=== PATIENT | male | born 1980 | race Caucasian/White ===

== ENCOUNTER 2018-07-24 14:00 | Inpatient (IN) | payer BC ==
[2018-07-24 14:25] VITALS: BMI 25.0
--- NOTE | 2018-07-24 14:33 | HP ---
CIWA Score Nausea/Vomitin Muscle Tremors: 4-Moderate,w/Arms Extend Anxiety: 4-Mod. Anxious/Guarded Agitation: 1-Slight > Activity Paroxysmal Sweats: 1-Minimal Palms Moist Orientation: 0-Oriented Tacttile Disturbances: 2-Mild Itch/Numbness/Burn Auditory Disturbances: 2-Mild Harshness/Frighten Visual Disturbances: 1-Very Mild Sensitivity Headache: 2-Mild CIWA-Ar Total Score: 19 - Admission Criteria [facility] Guidelines: Admission for Medically Managed Detox: Requires at least one of the followin. CIWA greater than 12 2. Seizures within the past 24 hours 3. Delirium tremens within the past 24 hours 4. Hallucinations within the past 24 hours 5. Acute intervention needed for co occurring medical disorder 6. Acute intervention needed for co occurring psychiatric disorder 7. Severe withdrawal that cannot be handled at a lower level of care (continued vomiting, continued diarrhea, abnormal vital signs) requiring intravenous medication and/or fluids 8. Patient presents the following: CIWA greater than 12 Admission Criteria Met: Admission criteria met Admission ROS S - HPI Chief Complaint: I need help, I can't stop, I'm in trouble Allergies/Adverse Reactions: Allergies Allergy/AdvReac Type Severity Reaction Status Date / Time No Known Allergies Allergy Verified 07/24/18 14:27 History of Present Illness: 38 yo gentleman here for detox from alcohol - accompanied by his father. Patient gives long history of alcohol use, escalated recently - per his father, he was in [facility] ED last night and given librium (patient has no memory of this) to help the shakes. He has not had a seizure but has had black outs. Never came in for detox but has been to ED multiple times. Denies psychiatric history. Urine tox + cocaine but he states this is occasional use only. He is feeling sick, very tremulous, sweaty, anxious. Exam Limitations: No Limitations - Ebola screening Have you traveled outside of the country in the last 21 days: No (N) Have you had contact with anyone from an Ebola affected area: No Have you been sick,other than usual withdrawal symptoms: No Do you have a fever: No - Review of Systems Constitutional: Loss of Appetite, Malaise, Night Sweats, Changes in sleep, Weakness EENT: reports: No Symptoms Reported Respiratory: reports: No Symptoms reported Cardiac: reports: No Symptoms Reported GI: reports: Poor Fluid Intake, Indigestion, Abdominal cramping : reports: Frequency Musculoskeletal: reports: No Symptoms Reported Integumentary: reports: Dryness Neuro: reports: Headache, Tremors Endocrine: reports: No Symptoms Reported Hematology: reports: No Symptoms Reported Psychiatric: reports: Judgement Intact, Mood/Affect Appropiate, Orientated x3, Anxious Other Systems: Reviewed and Negative Patient History - Patient Medical History Hx Asthma: No Hx Chronic Obstructive Pulmonary Disease (COPD): No Hx Cancer: No Hx Cardiac Disorders: No Hx Congestive Heart Failure: No Hx Hypertension: No Hx Hypercholesterolemia: No Hx Pacemaker: No Hx Seizures: No Hx Diabetes: No Hx Gastrointestinal Disorders: No Hx Liver Disease: No Hx Genitourinary Disorders: No Hx Sexually Transmitted Disorders: No Hx Renal Disease (ESRD): No Hx Thyroid Disease: No Hx Human Immunodeficiency Virus (HIV): No Hx Hepatitis C: No Hx Depression: No (anxiety) Hx Suicide Attempt: No Hx Bipolar Disorder: No Hx Schizophrenia: No - Patient Surgical History Past Surgical History: No - PPD History Previous Implant?: Yes Documented Results: Negative w/proof Implanted On Prior [facility] Admission?: No PPD to be Administered?: Yes - Reproductive History Patient is a Female of Child Bearing Age (11 -55 yrs old): No (male) - Smoking Cessation Smoking history: Former smoker Have you smoked in the past 12 months: No Initiated information on smoking cessation: No - Substance & Tx. History Hx Alcohol Use: Yes Hx Substance Use: No Substance Use Type: Alcohol Hx Substance Use Treatment: Yes (only ED visits ) - Substances Abused alcohol Route: Oral Frequency: Daily Amount used: 750ml bourbon; Age of first use: 13 Date of Last Use: 07/24/18 cocaine Frequency: 1-3 times last 30 days Amount used: $50 Age of first use: 23 Date of Last Use: 07/19/18 Family Disease History - Family Disease History Family Disease History: Other: Father (living, htn), Mother (living - etoh), Brother (two - etoh) Admission Physical Exam [facility] - Vital Signs Vital Signs: Vital Signs - 24 hr 07/24/18 14:24 Temperature 99.2 F Pulse Rate 94 H Respiratory 18 Rate Blood Pressure 128/85 - Physical General Appearance: Yes: Nourished, Appropriately Dressed, Moderate Distress, Tremorous, Anxious HEENTM: Yes: EOMI, Hearing grossly Normal, Normocephalic, Normal Voice, Other ( tongue coated) Respiratory: Yes: Normal Breath Sounds, No Respiratory Distress Neck: Yes: No masses,lesions,Nodules, Supple Breast: Yes: Breast Exam Deferred Cardiology: Yes: Regular Rhythm, Regular Rate Abdominal: Yes: Flat, Soft Genitourinary: Yes: Frequency Back: Yes: Normal Inspection Musculoskeletal: Yes: full range of Motion, Gait Steady Extremities: Yes: Normal Inspection, Normal Range of Motion, Non-Tender Neurological: Yes: Fully Oriented, Alert, Motor Strength 5/5, Normal Mood/Affect , Normal Response Integumentary: Yes: Normal Color, Dry, Warm Lymphatic: Yes: Within Normal Limits - Diagnostic (1) Alcohol dependence with uncomplicated withdrawal Current Visit: Yes Status: Chronic (2) Dehydration Current Visit: Yes Status: Acute Cleared for Admission [facility] - Detox or Rehab [facility] Level of Care: Medically Managed Detox Regimen/Protocol: Librium [facility] Breath Alcohol Content Breath Alcohol Content: 0.085 Urine Drug Screen - Results Drug Screen Negative: No Urine Drug Screen Results: SHANIKA-Cocaine, BZO-Benzodiazepines Inpatient Rehab Admission - Rehab Decision to Admit Inpatient rehab admission?: No
[2018-07-24] MEDS ORDERED: MELATONIN 5 MG TABLETS PO PRN (14:43)
[2018-07-24] MEDS ORDERED: METHOCARBAMOL 500 MG TABLET PO PRN (14:43)
[2018-07-24] MEDS ORDERED: chlordiazePOXIDE HCL 25 MG CAPSULE PO PRN (14:43)
[2018-07-24] MEDS ORDERED: hydrOXYzine PAMOATE 25 MG CAPSULE (FP) PO PRN (14:43)
[2018-07-24] MEDS ORDERED: ACETAMINOPHEN 325 MG TABLET (FP) PO PRN (14:43)
[2018-07-24] MEDS ORDERED: MAGNESIUM CITRATE 300 ML BOTTLE PO PRN (14:43)
[2018-07-24] MEDS ORDERED: ONDANSETRON *ODT* 4 MG TABLET SL PRN (14:43)
[2018-07-24] MEDS ORDERED: MAG HYDROX/AL HYDROX/SIMETH 30 ML UNIT-DOSE CUP PO PRN (14:43)
[2018-07-24] MEDS ORDERED: IBUPROFEN 400 MG TABLET (FP) PO PRN (14:43)
[2018-07-24] MEDS ORDERED: MAGNESIUM HYDROX 2400MG/30ML ORAL SUSPENSION 30 ML CUP PO PRN (14:43)
[2018-07-24] MEDS ORDERED: MENTHOL/PHENOL 1 EACH UD MM PRN (14:43)
[2018-07-24] MEDS ORDERED: BISMUTH SUBSALICYLATE 524 MG/30 ML UD PO PRN (14:43)
[2018-07-24] MEDS ORDERED: chlordiazePOXIDE HCL 25 MG CAPSULE PO ONE (17:00)
[2018-07-24] MEDS: chlordiazePOXIDE HCL 25 MG CAPSULE PO SCH ×2 (18:30→22:10)
[2018-07-24] MEDS ORDERED: THIAMINE HCL 100 MG TABLET (FP) PO SCH (22:00)
[2018-07-25] MEDS: chlordiazePOXIDE HCL 25 MG CAPSULE PO SCH ×2 (06:30→09:00)
--- NOTE | 2018-07-25 09:31 | DS ---
[facility] Detox Discharge Summary Admission Date: 07/24/18 Discharge Date: 07/25/18 - History Present History: Alcohol Dependence Additional Comments: Patient left AMA reports needs to return back to work. No suicidal / homicidal ideation. Patient highly encourage to continue detox. Patient advise on the risk of interrupting treatment which include relapse or even . Patient to follow up with primary provider within a week. If worsening symptoms are present , patient to seek medical attention or go to local ED. Patient verbalizes understanding. Pertinent Past History: Vital Signs Temperature 97.7 F 07/25/18 09:33 Pulse Rate 97 H 07/25/18 09:33 Respiratory Rate 16 07/25/18 09:33 Blood Pressure 151/97 07/25/18 09:33 O2 Sat by Pulse Oximetry (%) Laboratory Last Values WBC 5.0 K/mm3 (4.0-10.0) 07/25/18 07:35 RBC 4.25 M/mm3 (4.00-5.60) 07/25/18 07:35 Hgb 13.6 GM/dL (11.7-16.9) 07/25/18 07:35 Hct 38.8 % (35.4-49) 07/25/18 07:35 MCV 91.3 fl (80-96) 07/25/18 07:35 MCH 32.1 pg (25.7-33.7) 07/25/18 07:35 MCHC 35.1 g/dl (32.0-35.9) 07/25/18 07:35 RDW 14.2 % (11.9-15.9) 07/25/18 07:35 Plt Count 231 K/MM3 (134-434) 07/25/18 07:35 MPV 7.7 fl (7.5-11.1) 07/25/18 07:35 Sodium 137 mmol/L (136-145) 07/25/18 07:35 Potassium 3.6 mmol/L (3.5-5.1) 07/25/18 07:35 Chloride 99 mmol/L (98-107) 07/25/18 07:35 Carbon Dioxide 29 mmol/L (21-32) 07/25/18 07:35 Anion Gap 9 MMOL/L (8-16) 07/25/18 07:35 BUN 7 mg/dL (7-18) 07/25/18 07:35 Creatinine 0.9 mg/dL (0.55-1.3) 07/25/18 07:35 Creat Clearance w eGFR 93.46 (>60) 07/25/18 07:35 Random Glucose 125 mg/dL (74-106) H 07/25/18 07:35 Calcium 8.8 mg/dL (8.5-10.1) 07/25/18 07:35 Total Bilirubin 1.4 mg/dL (0.2-1) H 07/25/18 07:35 AST 119 U/L (15-37) H 07/25/18 07:35 ALT 88 U/L (13-61) H 07/25/18 07:35 Alkaline Phosphatase 69 U/L (45-117) 07/25/18 07:35 Total Protein 7.2 g/dl (6.4-8.2) 07/25/18 07:35 Albumin 4.2 g/dl (3.4-5.0) 07/25/18 07:35 RPR Titer Nonreactive (NONREACTIVE) 07/25/18 07:35 - Physical Exam Results Vital Signs: Vital Signs Temperature 97.9 F 07/25/18 07:42 Pulse Rate 77 07/25/18 07:42 Respiratory Rate 18 07/25/18 07:42 Blood Pressure 117/93 07/25/18 07:42 O2 Sat by Pulse Oximetry (%) - Medication Discharge Medications: Ambulatory Orders NK [No Known Home Medication] 07/24/18 - Diagnosis (1) Alcohol dependence with uncomplicated withdrawal Current Visit: Yes Status: Chronic - AMA Did Patient Leave Against Medical Advice: Yes
[2018-07-25 09:34] VITALS: BP 151/97; PULSE 97; TEMP 97.7
[2018-07-25] MEDS ORDERED: PRENATAL VITAMINS W/ FOLIC ACID TABLET (FP) PO SCH (10:00)
[2018-07-25 11:21] LABS: HEMATOCRIT 38.8 % (35.4-49); HEMOGLOBIN 13.6 GM/dL (11.7-16.9); MCH 32.1 pg (25.7-33.7); MCHC 35.1 g/dl (32.0-35.9); MEAN CELL VOLUME 91.3 fl (80-96); MEAN PLT VOLUME 7.7 fl (7.5-11.1); PLATELET COUNT 231 K/MM3 (134-434); RBC 4.25 M/mm3 (4.00-5.60); RDW 14.2 % (11.9-15.9)
[2018-07-25 12:03] LABS: ALBUMIN 4.2 g/dl (3.4-5.0); ALK PHOS 69 U/L (45-117); ANION GAP 9 MMOL/L (8-16); BILIRUBIN,TOTAL 1.4 mg/dL (0.2-1); BLOOD UREA NITROGEN 7 mg/dL (7-18); CALCIUM 8.8 mg/dL (8.5-10.1); CHLORIDE 99 mmol/L (98-107); CO2 29 mmol/L (21-32); CREATININE 0.9 mg/dL (0.55-1.3); GLUCOSE,RANDOM 125 mg/dL (74-106); POTASSIUM 3.6 mmol/L (3.5-5.1); SGOT/AST 119 U/L (15-37); SGPT/ALT 88 U/L (13-61); SODIUM 137 mmol/L (136-145); TOT PROT 7.2 g/dl (6.4-8.2)
[2018-07-25 12:48] LABS: URINE APPEARANCE CLEAR; URINE BILIRUBIN NEGATIVE (<2.0 mg/dL); URINE COLOR DKYELLOW; URINE GLUCOSE (UA) NEGATIVE (NEGATIVE); URINE KETONE TRACE (NEGATIVE); URINE LEUK ESTERASE NEGATIVE (NEGATIVE); URINE NITRITE NEGATIVE (NEGATIVE); URINE PROTEIN NEGATIVE (NEGATIVE)
--- NOTE | 2018-07-25 15:32 | EKG ---
Test Reason : Blood Pressure : / mmHG Vent. Rate : 089 BPM Atrial Rate : 089 BPM P-R Int : 150 ms QRS Dur : 084 ms QT Int : 366 ms P-R-T Axes : 060 057 063 degrees QTc Int : 445 ms SINUS RHYTHM WITH MARKED SINUS ARRHYTHMIA OTHERWISE NORMAL ECG NO PREVIOUS ECGS AVAILABLE Confirmed by MD GUS, JORDAN ([id number]) on 07/25/2018 3:32:23 PM Referred By: Confirmed By:JORDAN WEBER MD
[2018-07-25] MEDS ORDERED: chlordiazePOXIDE HCL 25 MG CAPSULE PO SCH (17:00)
[2018-07-26] MEDS ORDERED: chlordiazePOXIDE HCL 10 MG CAPSULE PO PRN (17:00)
[2018-07-26] MEDS ORDERED: chlordiazePOXIDE HCL 10 MG CAPSULE PO SCH (17:00)
[2018-07-27] MEDS ORDERED: chlordiazePOXIDE HCL 10 MG CAPSULE PO SCH (17:00)
== END 2018-07-25 10:05 | disposition left against medical advice (07) | DRG 894 ==
LOC: YASAS 14:00 → Y6N 16:46
PROVIDERS: ADMIT Surgery; ATTEND Surgery
PROC: HZ2ZZZZ Detoxification Services for Substance Abuse Treatment (ICD-10-PCS; principal; 2018-07-24)
DX: F10.230 Alcohol dependence with withdrawal, uncomplicated (principal); E86.0 Dehydration; Z87.891 Personal history of nicotine dependence
CPT/HCPCS: 36415; 80053; 81003; 85027; 86593; 93005; 93010